=== PATIENT | female | born 1975 | race Caucasian/White ===

== ENCOUNTER 2017-10-06 10:29 | Emergency (ER) | payer BC ==
[2017-10-06 10:33] VITALS: RESP 20
[2017-10-06] MEDS ORDERED: APAP/OXYCODONE 325/5 TAB PO ONE (10:43)
[2017-10-06] MEDS ORDERED: OXYCODONE HYDROCHLORIDE 5 MG TAB PO ONE (10:45)
[2017-10-06] MEDS ORDERED: OXYCODONE HYDROCHLORIDE 5 MG TAB ONE (10:46)
[2017-10-06] MEDS ORDERED: ONDANSETRON 4 MG ODT ONE (10:49)
[2017-10-06] MEDS ORDERED: ONDANSETRON 4 MG ODT BU ONE (10:49)
[2017-10-06 11:06] LABS: APPEARANCE,URINE Slightly Cloudy; BILIRUBIN,URINE 1+ (NEGATIVE); COLOR,URINE Dark yellow; GLUCOSE, URINE (UA) NEGATIVE (NEGATIVE); KETONES,URINE TRACE (NEGATIVE); LEUKOCYTE ESTERASE ,URINE NEGATIVE (NEGATIVE); NITRATE,URINE NEGATIVE (NEGATIVE); OCCULT BLOOD,URINE TRACE INTACT (NEG-TRACE); PH,URINE 5.5; UROBILINOGEN,URINE 0.2 (0.2-1.0 EU)
[2017-10-06 11:25] LABS: ICTOTEST,URINE NEGATIVE (NEGATIVE); RBC,URINE 0-2 (0-3AV/HPF)
[2017-10-06 11:31] VITALS: TEMP 98.4
[2017-10-06 11:52] VITALS: BP 141/85; PULSE 103; O2SAT 95
== END 2017-10-06 11:49 | disposition home or self-care (01) ==
LOC: ED 10:29
DX: N20.0 Calculus of kidney (principal)
CPT/HCPCS: 81001; 99283